=== PATIENT | male | born 1960 ===

== ENCOUNTER 2021-10-07 14:24 | Emergency (ER) | payer OTHER ==
[2021-10-07 15:02] LABS: ANION GAP 11.5 mEq/L (7-13)
[2021-10-07 15:21] LABS: PTT,PARTIAL THROMBOPLSTIN TIME 27.1 SEC (22.0-34.0)
[2021-10-07] MEDS ORDERED: Ketorolac 30 MG/ML SDV IVPUSH ONE (15:21)
== END 2021-10-07 15:40 | disposition home or self-care (01) ==
LOC: DL.ED 14:24
DX: R07.2 Precordial pain (principal); R74.8 Abnormal levels of other serum enzymes
CPT/HCPCS: 36415; 71045; 80053; 82150; 83690; 84484; 85025; 85379; 85610; 85730; 93005; 96374; 99285; J1885

== ENCOUNTER 2021-10-15 09:37 | Emergency (ER) | payer OTHER ==
[2021-10-15] MEDS ORDERED: Bacitracin Oint 1 GM U/D Packet TOP ONE (09:57)
[2021-10-15] MEDS ORDERED: Lidocaine 1% 5 ML VIAL INJECT ONE (09:57)
== END 2021-10-15 10:23 | disposition home or self-care (01) ==
LOC: DL.ED 09:37
DX: S71.112A Laceration without foreign body, left thigh, initial encounter (principal); F17.210 Nicotine dependence, cigarettes, uncomplicated; W26.8XXA Contact with other sharp object(s), not elsewhere classified, initial encounter; Y99.0 Civilian activity done for income or pay
CPT/HCPCS: 12001; 99282